=== PATIENT | female | born 1950 | race Caucasian/White ===

== ENCOUNTER → 2017-05-30 | Outpatient (CLI) | payer MEDICARE, OTHER ==
[~2017-05-30] MED LIST: ALBUTEROL PO; ASMANEX TW0.22 MG/A1 IH; EPA/GLA1 SGL PO; IPRATROP PO; K-DUR 2020 MEQ PO; LIPITOR20 MG PO; NORCO 325 MG-51 TAB PO; PRILOSEC 20MG20 MG PO; ZESTORETIC 25 M1 TAB PO; ZOLOFT 100MG100 MG PO
== END ==
LOC: MC.RAD 12:48
DX: N63.11 Unspecified lump in the right breast, upper outer quadrant (principal); R19.00 Intra-abdominal and pelvic swelling, mass and lump, unspecified site; Z85.3 Personal history of malignant neoplasm of breast; Z98.890 Other specified postprocedural states

== ENCOUNTER → 2017-06-04 | Outpatient (CLI) | payer MEDICARE, OTHER | LOC: MC.RAD 07:00 | DX: N63.11 Unspecified lump in the right breast, upper outer quadrant (principal); R19.00 Intra-abdominal and pelvic swelling, mass and lump, unspecified site; Z85.3 Personal history of malignant neoplasm of breast ==